=== PATIENT | male | born 1955 | race Caucasian/White ===

== ENCOUNTER 2018-03-15 11:00 | Emergency (ER) | payer BC, OTHER ==
[2018-03-15 12:14] LABS: Absolute Lymphocytes (CBC) 0.8 K/uL (0.7-4.9); Absolute Monocytes 0.5 K/uL (0.1-1.3); Absolute Neutrophil 7.1 K/uL (1.8-8.0); Basophils % 0.5 % (0-1.3); Eosinophils % 0.2 % (0-4.4); Hematocrit 41.5 % (39.6-49.0); Lymphocytes % 9.8 % (15.3-44.8); MPV 7.8 fL (7.6-11.3); Monocytes % 6.1 % (3.3-12.3)
[2018-03-15] MEDS ORDERED: KETOROLAC 30 MG/ML INJ ONE (12:38)
[2018-03-15] MEDS ORDERED: NA CHLORIDE 0.9% 1,000 ML ONE (12:38)
--- NOTE | 2018-03-15 12:53 | RAD REPORT ---
EXAM DESCRIPTION: CT - Stone Protocol - 03/15/2018 12:41 pm CLINICAL HISTORY: Flank pain. Abd pain;Flank pain COMPARISON: No comparisons TECHNIQUE: Axial images were obtained without oral or IV contrast. Lack of contrast limits solid org an and vascular assessment. The [id number] spans the entirety of the system partially obscuring uppermost abdomen and lung bases. Coronal reformatted images were obtained and reviewed. All CT scans are performed using dose optimization technique as appropriate and may include automated exposure control or mA/KV adjustment according to patient size. FINDINGS: The lower lung guidry are clear. Imaged portions of the liver and spleen show no suspicious findings on non-contrast imaging. The panc reas and adrenal glands are normal. No pathologic lymphadenopathy in the abdomen or pelvis. 4 mm stone (800 HU) is present in the mid right ureter at the level of L4-5 resulting in mild right h ydronephrosis. Punctate caliceal calculus is also present in right kidney midpole. No bowel obstruction, free air, free fluid or abscess. Normal appendix noted.Prominent descending div erticulosis in sigmoid diverticulosis is present without diverticulitis. No significant bony abnormality. Mild prostatomegaly is seen. Fat containing right inguinal hernia. IMPRESSION: Mild right hydronephrosis is present caused by a 4 mm stone mid right ureter. Additional right nephrolithiasis. Prominent diverticulosis of the sigmoid colon without diverticulitis.
--- NOTE | 2018-03-15 13:09 | ER ---
Nurse's Notes [facility] Name: Dominic Snowden Age: 63 yrs Sex: Male : 1955 Arrival Date: 03/15/2018 Time: 11:05 Bed 14 Private MD: Vicente Teague Diagnosis: Hydronephrosis with renal and ureteral calculous obstruction Presentation: 03/15 11:13 Presenting complaint: Patient states: dull, R lower back pain that began at 0630 that ss has progressed and now comes in waves and at times wraps around to RLQ. Also reports mild nausea with pain. Transition of care: patient was not received from another setting of care. Onset of symptoms was March 15, 2018. Risk Assessment: Do you want to hurt yourself or someone else? Patient reports no desire to harm self or others. Initial Sepsis Screen: Does the patient meet any 2 criteria? No. Patient's initial sepsis screen is negative. Does the patient have a suspected source of infection? No. Patient's initial sepsis screen is negative. Note pt believes he may have a kidney stone. Care prior to arrival: None. 11:13 Method Of Arrival: Ambulatory ss 11:13 Acuity: SIDNEY 3 ss Historical: - Allergies: 11:16 No Known Allergies; ss - Home Meds: 11:16 valsartan 160 mg oral tab 1 tab once daily [Active]; Wellbutrin Oral [Active]; ss - PMHx: 11:16 Hypertension; Glaucoma; ss - PSHx: 11:16 Hernia repair; ss - Immunization history:: Adult Immunizations up to date. - Social history:: Smoking status: Patient/guardian denies using tobacco. - Ebola Screening: : Patient denies exposure to infectious person Patient denies travel to an Ebola-affected area in the 21 days before illness onset. Screenin:36 Abuse screen: Denies threats or abuse. Nutritional screening: No deficits noted. rb1 Tuberculosis screening: No symptoms or risk factors identified. Fall Risk None identified. Assessment: 11:36 General: Appears in no apparent distress. comfortable, Behavior is calm, cooperative, rb1 Denies fever. Pain: Complains of pain in right mid back Pain radiates to right lower quadrant and right upper quadrant Pain currently is 3 out of 10 on a pain scale. Neuro: Level of Consciousness is awake, alert, obeys commands, Oriented to person, place, time, situation. Cardiovascular: Capillary refill < 3 seconds is brisk in bilateral fingers. Respiratory: Airway is patent Respiratory effort is even, unlabored, Respiratory pattern is regular, symmetrical. GI: Reports nausea. : No signs and/or symptoms were reported regarding the genitourinary system. Derm: Skin is dry, Skin is normal, Skin temperature is warm. Musculoskeletal: Range of motion: intact in all extremities. 12:34 Reassessment: Patient appears in no apparent distress at this time. No changes from rb1 previously documented assessment. Pt. went to CT. 13:30 Reassessment: Patient appears in no apparent distress at this time. Patient and/or rb1 family updated on plan of care and expected duration. Pain level reassessed. Patient is alert, oriented x 3, equal unlabored respirations, skin warm/dry/pink. Patient states feeling better. 14:12 Reassessment: Patient appears in no apparent distress at this time. No changes from rb1 previously documented assessment. Vital Signs: 11:16 BP 146 / 91; Pulse 59; Resp 16; Temp 97.9(TE); Pulse Ox 99% on R/A; Weight 79.38 kg; ss Height 5 ft. 10 in. (177.80 cm); Pain 3/10; 12:15 BP 134 / 76; Pulse 59; Resp 19; Pulse Ox 98% on R/A; Pain 3/10; rb1 13:15 BP 139 / 86; Pulse 108; Resp 15; Pulse Ox 98% ; rb1 14:00 BP 113 / 64; Pulse 70; Resp 15; Pulse Ox 98% on R/A; Pain 0/10; rb1 11:16 Body Mass Index 25.11 (79.38 kg, 177.80 cm) ED Course: 11:05 Patient arrived in ED. sb2 11:05 Vicente Teague MD is Private Physician. sb2 11:15 Triage completed. ss 11:16 Arm band placed on right wrist. ss 11:17 [facility]C [facility] snw 11:17 Hector Cadena MD is Attending Physician. snw 11:36 Patient has correct armband on for positive identification. Bed in low position. Call rb1 light in reach. Side rails up X 1. Pulse ox on. NIBP on. 11:41 Yoselin Lauren, RN is Primary Nurse. rb1 12:10 Inserted saline lock: 20 gauge in right antecubital area, using aseptic technique. rb1 ,using aseptic technique. IV inserted by ESTELA Dawson Blood collected. 12:35 CT completed. Patient tolerated procedure well. Patient moved to CT via wheelchair. sj Patient moved back from CT. 12:41 CT Stone Protocol In Process Unspecified. EDMS 13:08 Vicente Teauge MD is Referral Physician. snw 14:15 No provider procedures requiring assistance completed. rb1 14:15 IV discontinued, intact, bleeding controlled, No redness/swelling at site. Pressure rb1 dressing applied. Administered Medications: 12:34 Drug: NS 0.9% 1000 ml Route: IV; Rate: 1 bolus; Site: right antecubital; rb1 13:50 Follow up: Response: No adverse reaction rb1 12:35 Drug: TORadol 30 mg Route: IVP; Site: right antecubital; rb1 12:50 Follow up: Response: No adverse reaction; Pain is decreased rb1 13:25 Drug: Flomax 0.4 mg Route: PO; rb1 13:45 Follow up: Response: No adverse reaction rb1 Outcome: 13:08 Discharge ordered by . snw 14:15 Discharged to home ambulatory, with significant other. rb1 14:15 Condition: stable 14:15 Discharge instructions given to patient, Instructed on discharge instructions, follow up and referral plans. medication usage, Demonstrated understanding of instructions, follow-up care, medications, Prescriptions given X 3. Signatures: Dispatcher [employer] EDMD Katerin Aleman, [employer] VEGETABLE VENDOR-Trudy Hatfield Shelby, RN RN ss Yoselin Lauren, RN RN rb1 Linda Rudd RN RN tw2 Etta Hidalgo sb2 Corrections: (The following items were deleted from the chart) 14:52 14:41 Patient left the ED. tw2 rb1
--- NOTE | 2018-03-15 13:09 | EDPHYS ---
Physician Documentation [facility] Name: Dominic Snowden Age: 63 yrs Sex: Male : 1955 Arrival Date: 03/15/2018 Time: 11:05 Bed 14 Private MD: Vicente Teague ED Physician Hector Cadena HPI: 03/15 12:10 This 63 yrs old Male presents to ER via Ambulatory with complaints of Back snw Pain. 12:10 The patient complains of pain in the right mid back. The pain radiates to the right snw upper quadrant and right lower quadrant. Onset: The symptoms/episode began/occurred suddenly. Associated signs and symptoms: Pertinent positives: nausea. Severity of pain: At its worst the pain was moderate severe. The patient has not experienced similar symptoms in the past. Recent MD change to Dr. Teague. hx of diverticulitis. Historical: - Allergies: 11:16 No Known Allergies; ss - Home Meds: 11:16 valsartan 160 mg oral tab 1 tab once daily [Active]; Wellbutrin Oral [Active]; ss - PMHx: 11:16 Hypertension; Glaucoma; ss - PSHx: 11:16 Hernia repair; ss - Immunization history:: Adult Immunizations up to date. - Social history:: Smoking status: Patient/guardian denies using tobacco. - Ebola Screening: : Patient denies exposure to infectious person Patient denies travel to an Ebola-affected area in the 21 days before illness onset. ROS: 12:08 Constitutional: Negative for fever, chills, and weight loss, Eyes: Negative for injury, snw pain, redness, and discharge, ENT: Negative for injury, pain, and discharge, Neck: Negative for injury, pain, and swelling, Cardiovascular: Negative for chest pain, palpitations, and edema, Respiratory: Negative for shortness of breath, cough, wheezing, and pleuritic chest pain, Back: Negative for injury and pain, + right flank pain in spasms : Negative for injury, bleeding, discharge, and swelling, MS/Extremity: Negative for injury and deformity, Skin: Negative for injury, rash, and discoloration, Neuro: Negative for headache, weakness, numbness, tingling, and seizure. 12:08 Abdomen/GI: Positive for nausea, radiation of pain around and into right lower quad. Exam: 12:07 Constitutional: This is a well developed, well nourished patient who is awake, alert, snw and in no acute distress. Head/Face: Normocephalic, atraumatic. Eyes: Pupils equal round and reactive to light, extra-ocular motions intact. Lids and lashes normal. Conjunctiva and sclera are non-icteric and not injected. Cornea within normal limits. Periorbital areas with no swelling, redness, or edema. ENT: Nares patent. No nasal discharge, no septal abnormalities noted. Tympanic membranes are normal and external auditory canals are clear. Oropharynx with no redness, swelling, or masses, exudates, or evidence of obstruction, uvula midline. Mucous membranes moist. Neck: Trachea midline, no thyromegaly or masses palpated, and no cervical lymphadenopathy. Supple, full range of motion without nuchal rigidity, or vertebral point tenderness. No Meningismus. Chest/axilla: Normal chest wall appearance and motion. Nontender with no deformity. No lesions are appreciated. Cardiovascular: Regular rate and rhythm with a normal S1 and S2. No gallops, murmurs, or rubs. Normal PMI, no JVD. No pulse deficits. Respiratory: Lungs have equal breath sounds bilaterally, clear to auscultation and percussion. No rales, rhonchi or wheezes noted. No increased work of breathing, no retractions or nasal flaring. Male : Normal genitalia with no discharge or lesions. Skin: Warm, dry with normal turgor. Normal color with no rashes, no lesions, and no evidence of cellulitis. MS/ Extremity: Pulses equal, no cyanosis. Neurovascular intact. Full, normal range of motion. Neuro: Awake and alert, GCS 15, oriented to person, place, time, and situation. Cranial nerves II-XII grossly intact. Motor strength 5/5 in all extremities. Sensory grossly intact. Cerebellar exam normal. Normal gait. 12:07 Abdomen/GI: Inspection: abdomen appears normal, Bowel sounds: normal, Palpation: abdomen is soft and non-tender, in all quadrants. 12:07 Back: pain, that is moderate, that is severe, CVA tenderness, is noted on the right. Vital Signs: 11:16 BP 146 / 91; Pulse 59; Resp 16; Temp 97.9(TE); Pulse Ox 99% on R/A; Weight 79.38 kg; ss Height 5 ft. 10 in. (177.80 cm); Pain 3/10; 12:15 BP 134 / 76; Pulse 59; Resp 19; Pulse Ox 98% on R/A; Pain 3/10; rb1 13:15 BP 139 / 86; Pulse 108; Resp 15; Pulse Ox 98% ; rb1 14:00 BP 113 / 64; Pulse 70; Resp 15; Pulse Ox 98% on R/A; Pain 0/10; rb1 11:16 Body Mass Index 25.11 (79.38 kg, 177.80 cm) ss MDM: 12:06 Patient medically screened. snw 12:56 Data reviewed: vital signs, nurses notes. Data interpreted: Pulse oximetry: on room air snw is 98 %. Interpretation: normal. Counseling: I had a detailed discussion with the patient and/or guardian regarding: the historical points, exam findings, and any diagnostic results supporting the discharge/admit diagnosis, lab results, radiology results. 03/15 11:17 Order name: Basic Metabolic Panel; Complete Time: 13:37 snw 03/15 11:17 Order name: CBC with Diff; Complete Time: 12:57 snw 03/15 11:17 Order name: Creatinine for Radiology; Complete Time: 12:57 snw 03/15 11:17 Order name: Hepatic Function; Complete Time: 13:37 snw 03/15 11:17 Order name: Lipase; Complete Time: 13:37 snw 03/15 14:10 Order name: Urine Dipstick--Ancillary (enter results) bd 03/15 11:17 Order name: IV Saline Lock; Complete Time: 12:35 snw 03/15 11:17 Order name: Labs collected and sent; Complete Time: 12:35 snw 03/15 12:01 Order name: CT Stone Protocol; Complete Time: 12:57 snw 03/15 13:09 Order name: Urine Dipstick-Ancillary (obtain specimen); Complete Time: 14:11 snw Administered Medications: 12:34 Drug: NS 0.9% 1000 ml Route: IV; Rate: 1 bolus; Site: right antecubital; rb1 13:50 Follow up: Response: No adverse reaction rb1 12:35 Drug: TORadol 30 mg Route: IVP; Site: right antecubital; rb1 12:50 Follow up: Response: No adverse reaction; Pain is decreased rb1 13:25 Drug: Flomax 0.4 mg Route: PO; rb1 13:45 Follow up: Response: No adverse reaction rb1 Disposition: 15:13 Co-signature as Attending Physician, Hector Cadena MD. rn Disposition: 03/15/18 13:08 Discharged to Home. Impression: Hydronephrosis with renal and ureteral calculous obstruction. - Condition is Stable. - Discharge Instructions: Kidney Stones, Hydronephrosis, Dietary Guidelines to Help Prevent Kidney Stones. - Prescriptions for Flomax 0.4 mg Oral Capsule, Sust. Release 24 hr - take 1 capsule by ORAL route once daily 1/2 hour following the same meal each day; 30 capsule. Cipro 500 mg Oral Tablet - take 1 tablet by ORAL route every 12 hours for 7 days; 14 tablet. Diclofenac Sodium 75 mg Oral Tablet Sustained Release - take 1 tablet by ORAL route 2 times per day; 30 tablet. - Work release form, Medication Reconciliation Form, Thank You Letter, Antibiotic Education, Prescription Opioid Use form. - Follow up: Vicente Teague MD; When: 2 - 3 days; Reason: Recheck today's complaints, Continuance of care, Re-evaluation by your physician. Follow up: Emergency Department; When: As needed; Reason: Worsening of condition. Signatures: Dispatcher [employer] EDMS Katerin Aleman, [employer] EXCHANGE REPAIRER-C [employer] EXCHANGE REPAIRER-Csnw Hector Cadena MD MD rn Smirch, Shelby, RN RN ss Yoselin Lauren, IVETH RN rb1 Linda Rudd RN RN tw2 Corrections: (The following items were deleted from the chart) 12:12 12:10 This 63 yrs old Male presents to ER via Ambulatory with complaints of snw Back Pain. snw 14:41 13:08 03/15/2018 13:08 Discharged to Home. Impression: Hydronephrosis with renal and tw2 ureteral calculous obstruction. Condition is Stable. Forms are Medication Reconciliation Form, Thank You Letter, Antibiotic Education, Prescription Opioid Use. Follow up: Vicente Teague; When: 2 - 3 days; Reason: Recheck today's complaints, Continuance of care, Re-evaluation by your physician. Follow up: Emergency Department; When: As needed; Reason: Worsening of condition. snw
[2018-03-15 13:20] LABS: Bilirubin Direct 0.2 mg/dL (0-0.2); Bilirubin Total 0.6 mg/dL (0.2-1.0); Protein, Total 7.2 g/dL (6.4-8.2)
[2018-03-15] MEDS ORDERED: TAMSULOSIN 0.4 MG SR CAP ONE (13:33)
[2018-03-15 20:03] LABS: Urine Blood 3+ (NEG); Urine Glucose NEGATIVE (NEG); Urine Protein 1+ (NEG); Urine Specific Gravity 1.025 (1.005-1.030)
== END 2018-03-15 14:41 | disposition home or self-care (01) ==
LOC: ER 11:00
DX: N13.2 Hydronephrosis with renal and ureteral calculous obstruction (principal); K57.30 Diverticulosis of large intestine without perforation or abscess without bleeding; I10 Essential (primary) hypertension; Z79.899 Other long term (current) drug therapy
CPT/HCPCS: 36415; 74176; 76377; 80048; 80076; 81003; 83690; 85025; 96374; 99284; J7030